=== PATIENT | female | born 1985 ===

== ENCOUNTER 2017-11-25 07:15 | Emergency (ER) | payer OTHER ==
--- NOTE | 2017-11-25 07:50 | ED PDOC ---
Arrival/HPI - General Chief Complaint: Headache Time Seen by Provider: 11/25/17 07:46 Historian: Patient - History of Present Illness Narrative History of Present Illness (Text): 11/25/17 08:00 Pt p/w + 1 week onset of frontal headache, left >> right side; + light-sensitive , + > 10/10 pain over the last 2-3 days; also + intermittent nausea with vomiting x last 2 days, at least 2 vomits daily; pt has no appetite, no fever/ chills/sweats, no sore throat, no chest pain/shortness of breath/palpitations, no abd pain, no numbness/tingling, no urinary/bowel changes, no rashes, no fall/ trauma/sick contact, no travel; pt took OTC aleve with minimum-no relief; pt denied LOC; pt arrived to emergency department for further eval; pt's without other complaints pt with hx of migraines, states usually gets one episode every month and lasts usually 2-3 days at most; pt [place] country but does not know the name PCP: clinic Past medical history: Migraines LMP: 1-2 weeks ago Time/Duration: 1 week Symptom Onset: Gradual Symptom Course: Worsening Quality: Aching, Tightness, Cramping, Throbbing Severity Level: Severe Activities at Onset: Rest Context: Home Past Medical History - Provider Review Nursing Documentation Reviewed: Yes - Travel History Have you recently traveled outside [place] w/in the past 3 mons?: No - Past History Past History: No Previous - Infectious Disease Hx of Infectious Diseases: None - Reproductive Menopause: No Currently : Unknown (LMP: 1-2 weeks ago) Family/Social History - Physician Review Nursing Documentation Reviewed: Yes Family/Social History: No Known Family HX Smoking Status: Never Smoked Hx Alcohol Use: Yes Frequency of alcohol use: Socially Hx Substance Use: No Hx Substance Use Treatment: No Allergies/Home Meds Allergies/Adverse Reactions: Allergies No Known Allergies Allergy (Verified 11/25/17 07:50) Review of Systems - Review of Systems Constitutional: Normal Eyes: Other (light sensitive) ENT: Normal Respiratory: Normal Cardiovascular: Normal Gastrointestinal: Nausea, Vomiting. absent: Abdominal Pain Genitourinary Female: Normal Musculoskeletal: Normal Skin: Normal Neurological: Headache, Dizziness Endocrine: Normal Hemo/Lymphatic: Normal Psychiatric: Normal Physical Exam - Physical Exam Narrative Physical Exam (Text): 11/25/17 0755 General: alert/awake, GCS = 15, oriented x 3, resting in bed, uncomfortable, cooperative, interactive; mild distress due to pain Head: NC/AT EYE: PERRLA, EOMI, sclera anicteric, no nystagmus, light-sensitive; visual field intact b/l; wearing eye glasses Facial: WNL Oral: uvula/tongue are midline, no exudate/lesions, no drooling/stridor, no dysphonia; intact dentitions; moist oral mucosa NECK: intact ROM, no midline tenderness, no nuchal rigidity, no meningeal signs ; no step off Chest: CTA b/l, no w/r/r; no tachypenia, no accessory muscle use noted Cardiac: +S1, +S2, no m/r/r, no tachycardia Abdominal: +BS, soft/nd/nt, well nourished patient; no masses/rebound/guarding/ rigidity; no tony's sign, no mcburney's point tenderness Extremities: intact ROM, strength 5/5 grossly intact in all limbs, neurovasc intact b/l; + ambulatory; reflex +2/2; no pitting edema/swelling b/l; no Antoni' s sign b/l BACK: no step off, no midline tenderness, NO crepitus, no gross deformities noted; Intact ROM SKIN: cap refill < 1 sec, no ulcerations, no petechiae, no rashes; no pallor NEURO: CNII-XII WNL, no facial asymmetries, no slurr speech, oriented x 3 NIH stroke scale ~ 0 Psych: normal insight, normal affect; follows command with ease Vital Signs Reviewed: Yes Vital Signs Temp Pulse Resp BP Pulse Ox 11/25/17 07:56 97.8 F 78 18 116/87 99 Temperature: Afebrile Blood Pressure: Normal Pulse: Regular Respiratory Rate: Normal Appearance: Positive for: Well-Appearing, Non-Toxic, Uncomfortable. No: Ill- Appearing, Unkept Pain Distress: Mild Mental Status: Positive for: Alert and Oriented X 3 - Systems Exam Head: Present: Atraumatic, Normocephalic Medical Decision Making ED Course and Treatment: 11/25/17 07:49 Impression: CALIX i have consider all the differential diagnosis regarding pt's chief medical complaints/clinical findings, including but are not limited to: CALIX; unlikely infectious/unlikely bleed, atrumatic A/P: CALIX - supportive care - observe/reevaluation 11/25/17 10:54 pt is comfortable currently pt is doing well pt is not in any distress pt states her headache is now down to 3-4/10; much improved pt is made aware of her medical results pt is encouraged fluids pt will follow up as directed pt will be discharged home Re-evaluation Time: 10:54 Reassessment Condition: Improved - Lab Interpretations Lab Results: 11/25/17 08:25 11/25/17 08:25 Lab Results 11/25/17 09:15: Urine Color Yellow, Urine Appearance Clear, Urine pH 8.5, Ur Specific [place] 1.015, Urine Protein Trace H, Urine Glucose (UA) 100 H, Urine Ketones Negative, Urine Blood Negative, Urine Nitrate Positive H, Urine Bilirubin Negative, Urine Urobilinogen 2.0 H, Ur Leukocyte Esterase Negative, Urine RBC Negative, Urine WBC Negative, Ur Epithelial Cells 0 - 2, Urine Bacteria Trace 11/25/17 08:25: Sodium 143, Potassium 4.1, Chloride 108 H, Carbon Dioxide 24, Anion Gap 15, BUN 10, Creatinine 0.6 L, Est GFR ( Amer) > 60, Est GFR ( Non-Af Amer) > 60, Random Glucose 89, Calcium 8.5, Total Bilirubin 0.7, AST 21, ALT 31, Alkaline Phosphatase 30 L, Total Protein 7.0, Albumin 4.1, Globulin 2.9 , Albumin/Globulin Ratio 1.4 11/25/17 08:25: WBC 4.5, RBC 4.06, Hgb 12.0, Hct 35.2 L, MCV 86.7, MCH 29.6, MCHC 34.1, RDW 12.4, Plt Count 198, MPV 9.0, Gran % 63.2, Lymph % (Auto) 29.0, [place] % (Auto) 6.0, Eos % (Auto) 1.6, Baso % (Auto) 0.2, Gran # 2.83, Lymph # ( Auto) 1.3, [place] # (Auto) 0.3, Eos # (Auto) 0.1, Baso # (Auto) 0.01, ESR 2 I have reviewed the lab results: Yes Interpretation: Abnormal lab values (+ UA) - Medication Orders Current Medication Orders: Trimethoprim/Sulfamethoxazole (Bactrim Ds Tab) 1 tab PO STAT STA PRN Reason: Protocol Stop: 11/25/17 10:54 Discontinued Medications Magnesium Sulfate/Dextrose (Magnesium Sulfate 1 Gm/100 Ml D5w) 1 gm in 100 mls @ 100 mls/hr IVPB ONCE ONE Stop: 11/25/17 09:03 Last Admin: 11/25/17 08:30 Dose: 100 mls/hr eMAR Start Stop Document 11/25/17 08:30 [facility] (Rec: 11/25/17 08:31 [facility] [id number]) Intravenous Solution Start Date 11/25/17 Start Time 08:30 End Date 11/25/17 End time 09:30 Total Infusion Time 60 Sodium Chloride (Sodium Chloride 0.9%) 1,000 mls @ 999 mls/hr IV .Q1H1M STA Stop: 11/25/17 09:04 Last Admin: 11/25/17 08:29 Dose: 999 mls/hr eMAR Start Stop Document 11/25/17 08:29 [facility] (Rec: 11/25/17 08:30 [facility] [id number]) Intravenous Solution Start Date 11/25/17 Start Time 08:29 End Date 11/25/17 End time 09:29 Total Infusion Time 60 Ketorolac Tromethamine (Toradol) 30 mg IVP STAT STA Stop: 11/25/17 08:05 Last Admin: 11/25/17 08:30 Dose: 30 mg MAR Pain Assessment Document 11/25/17 08:30 [facility] (Rec: 11/25/17 08:30 [facility] [id number]) Pain Reassessment Is this a pain reassessment? No IVP Administration Document 11/25/17 08:30 [employer] (Rec: 11/25/17 08:30 [facility] [id number]) Charges for Administration # of IVP Administrations 1 Metoclopramide HCl (Reglan) 10 mg IVP STAT STA Stop: 11/25/17 08:05 Last Admin: 11/25/17 08:30 Dose: 10 mg IVP Administration Document 11/25/17 08:30 [employer] (Rec: 11/25/17 08:30 [facility] [id number]) Charges for Administration # of IVP Administrations 1 NIHSS Stroke Scale 3 - Date/Time Evaluation Performed Date Performed: 11/25/17 Time Performed: 08:00 When Was NIHSS Performed: Baseline - How Severe is the Stroke Level of Consciousness: 0=Alert LOC to Questions: 0=Both comments correct LOC to commands: 0=Obeys both correctly Best Gaze: 0=Normal Visual: 0=No visual loss Facial: 0=Normal Motor Arm - Left: 0=No drift Motor Arm - Right: 0=No drift Motor Leg - Left: 0=No drift Motor Leg - Right: 0=No drift Limb Ataxia: 0=Absent Sensory: 0=Normal Best Language: 0=No aphasia Dysarthia: 0=Normal articulation Extinction & Inattention (Neglect): 0=Normal, no object Score: 0 Disposition/Present on Arrival - Present on Arrival Any Indicators Present on Arrival: No History of DVT/PE: No History of Uncontrolled Diabetes: No Urinary Catheter: No History of Decub. Ulcer: No History Surgical Site Infection Following: None - Disposition Have Diagnosis and Disposition been Completed?: Yes Diagnosis: Migraine, UTI (urinary tract infection) Disposition: HOME/ ROUTINE Disposition Time: 10:58 Patient Plan: Discharge Condition: STABLE Discharge Instructions (ExitCare): Migraine Headache (DC) Print Language: CANADIAN Additional Instructions: Make sure to see your doctor in 1-2 days DRINK PLENTY OF FLUIDS take your medications as prescribed RETURN TO ED IF worse pain, cant breath, persistent vomiting, high fever >101- 102 for hours, altered behavior, slurr speech, facial changes, focal weakness ( arm/leg or both), unable to urinate, heavy/persistent bleeding, passing out, chest pain, or other medical emergencies Prescriptions: Ibuprofen [Motrin] 600 mg PO QID PRN #30 tab PRN Reason: Pain, Mild (1-3) Metoclopramide [Reglan] 10 mg PO TID PRN #30 tab PRN Reason: Nausea/Vomiting Sulfamethoxazole/Trimethoprim [Bactrim DS 800 mg-160 mg] 1 tab PO BID #13 tab Referrals: Alvarez Berman MD [Staff Provider] - Follow up with primary [email or web address] [Outside] - Follow up with primary [facility] [Outside] - Follow up with primary [facility] [place] - Follow up with primary Forms: [employer] (Sami), WORK NOTE
[2017-11-25 07:59] VITALS: BMI 23.8
[2017-11-25 08:00] VITALS: RESP 18; TEMP 97.8; O2SAT 99
[2017-11-25] MEDS ORDERED: Magnesium Sulfate 1 gm in D5W 1 GM/100 ML BAG IVPB ONE (08:04)
[2017-11-25] MEDS ORDERED: Sodium Chloride 0.9% 1,000 ML IV STA (08:04)
[2017-11-25 08:36] LABS: BASO # 0.01 K/mm3 (0.0-2.0); BASO % 0.2 % (0.0-3.0); EOS # 0.1 (0.0-0.7); EOS % 1.6 % (1.5-5.0); GRAN # 2.83 (1.4-6.5); GRAN % 63.2 % (50.0-68.0); LYMPH # 1.3 (1.2-3.4); MEAN CELL VOLUME 86.7 fl (80.0-105.0); MEAN CORPUSCULAR HEMOGLOBIN 29.6 pg (25.0-35.0); MEAN CORPUSCULAR HGB CONC 34.1 g/dl (31.0-37.0); MONO # 0.3 (0.1-0.6); RBC 4.06 10^6/uL (3.5-6.1); RED CELL DISTRIBUTION WIDTH 12.4 % (11.5-14.5); WHITE BLOOD COUNT 4.5 10^3/ul (4.5-11.0)
[2017-11-25 08:54] LABS: ALB/GLOB RATIO 1.4 (1.1-1.8); ALBUMIN 4.1 g/dL (3.0-4.8); ALT/SGPT 31 U/L (7-56); AST/SGOT 21 U/L (14-36); BLOOD UREA NITROGEN 10 mg/dL (7-21); CALCIUM 8.5 mg/dL (8.4-10.5); GFR AFRICAN-AMERICAN > 60; GFR NON-AFRICAN AMERICAN > 60
[2017-11-25 09:39] LABS: PH,URINE 8.5 (4.7-8.0); URINE BILIRUBIN NEGATIVE (NEGATIVE); URINE BLOOD NEGATIVE (NEGATIVE); URINE GLUCOSE (UA) 100 mg/dL (NEGATIVE); URINE LEUKOCYTE ESTERASE NEGATIVE Leu/uL (NEGATIVE); URINE PROTEIN TRACE mg/dL (<30 mg/dL)
[2017-11-25 09:41] LABS: URINE COLOR YELLOW (YELLOW)
[2017-11-25 09:42] LABS: URINE APPEARANCE CLEAR (CLEAR)
[2017-11-25 10:04] LABS: URINE RBC NEGATIVE /hpf (0-2)
[2017-11-25 10:05] LABS: URINE BACTERIA TRACE (NEG); URINE EPITHELIAL CELLS 0 - 2 /hpf (0-5); URINE WBC NEGATIVE /hpf (0-6)
[2017-11-25] MEDS ORDERED: Tmp-Smz 800 mg-160 mg DS Tab PO STA (10:53)
[2017-11-25 11:29] VITALS: PULSE 72
[2017-11-25 11:31] VITALS: BP 112/66
== END 2017-11-25 11:31 | disposition home or self-care (01) ==
LOC: ED 07:38
DX: G43.909 Migraine, unspecified, not intractable, without status migrainosus (principal); N39.0 Urinary tract infection, site not specified
CPT/HCPCS: 80053; 81001; 85025; 85651; 87086; 96365; 96375; 99285; J1885; J2765; J3475; J7030

== ENCOUNTER 2018-11-04 09:59 | Emergency (ER) | payer MEDICAID, OTHER ==
[2018-11-04 10:16] VITALS: BMI 25.6
[2018-11-04 10:32] VITALS: RESP 18; TEMP 98.8; O2SAT 100
[2018-11-04] MEDS ORDERED: Sodium Chloride 0.9% 1,000 ML IV STA (10:45)
--- NOTE | 2018-11-04 11:08 | ED PDOC ---
Arrival/HPI - General Chief Complaint: Female Genitourinary Time Seen by Provider: 11/04/18 10:00 Historian: Patient - History of Present Illness Narrative History of Present Illness (Text): 11/04/18 11:07 33 year old female, with no significant past medical history, presents to the emergency department complaining of vaginal bleeding and lower abdominal discomfort that began last night. Patient reports her menstrual period was late and took 4 positive test 2 days ago. Patient's last menstrual period was 10/04 and states it is normally regular. Patient denies any fever, chills, chest pain, shortness of breath, nausea, vomiting, diarrhea, urinary symptoms, back pain, neck pain, headache, dizziness, or any other complaints. PMD: Dr. Lilly Flowers Time/Duration: Other (last night) Symptom Onset: Gradual Symptom Course: Unchanged Activities at Onset: Light Context: Home Past Medical History - Provider Review Nursing Documentation Reviewed: Yes Primary Care Provider: Non [facility] Provider, - Past History Past History: No Previous - Infectious Disease Hx of Infectious Diseases: None - Psychiatric Hx Substance Use: No Family/Social History - Physician Review Nursing Documentation Reviewed: Yes Family/Social History: No Known Family HX Smoking Status: Never Smoked Hx Alcohol Use: Yes Hx Substance Use: No Hx Substance Use Treatment: No Allergies/Home Meds Allergies/Adverse Reactions: Allergies No Known Allergies Allergy (Verified 11/04/18 10:32) Review of Systems - Physician Review All systems were reviewed & negative as marked: Yes - Review of Systems Constitutional: absent: Fevers, Other (chills) Respiratory: absent: SOB Cardiovascular: absent: Chest Pain Gastrointestinal: Abdominal Pain. absent: Diarrhea, Nausea, Vomiting Genitourinary Female: Vaginal Bleeding. absent: Frequency, Hematuria Musculoskeletal: absent: Back Pain, Neck Pain Neurological: absent: Headache, Dizziness Physical Exam Vital Signs Reviewed: Yes Vital Signs Temp Pulse Resp BP Pulse Ox 11/04/18 10:16 98.8 F 68 18 115/77 100 Temperature: Afebrile Blood Pressure: Normal Pulse: Regular Respiratory Rate: Normal Appearance: Positive for: Well-Appearing, Non-Toxic, Comfortable Pain Distress: None Mental Status: Positive for: Alert and Oriented X 3 - Systems Exam Head: Present: Atraumatic, Normocephalic Pupils: Present: PERRL Extroacular Muscles: Present: EOMI Conjunctiva: Present: Normal Mouth: Present: Moist Mucous Membranes Neck: Present: Normal Range of Motion Respiratory/Chest: Present: Clear to Auscultation, Good Air Exchange. No: Respiratory Distress, Accessory Muscle Use Cardiovascular: Present: Regular Rate and Rhythm, Normal S1, S2. No: Murmurs Abdomen: No: Tenderness, Distention, Peritoneal Signs Back: Present: Normal Inspection Upper Extremity: Present: Normal Inspection. No: Cyanosis, Edema Lower Extremity: Present: Normal Inspection. No: Edema Neurological: Present: GCS=15, Speech Normal Skin: Present: Warm, Dry, Normal Color. No: Rashes Psychiatric: Present: Alert, Oriented x 3, Normal Insight, Normal Concentration Medical Decision Making ED Course and Treatment: 11/04/18 11:18 Impression: 33 year old female presents complaining of vaginal bleeding and lower abdominal discomfort that began last night. Plan: -- Labs -- IV Fluids -- Urine Culture -- POC Urine Test -- Urinalysis w/ micro -- OB Transvaginal US -- Reassess and disposition Progress Notes: Transvaginal US Dictator : Geri Hayes MD Report Date : 11/04/2018 12:06:10 Impression: No evidence of intrauterine gestational sac. If indeed the patient is based on serum beta HCG values, the sonographic findings represent either: Very early IUP; embryonic demise; ectopic gestation. Follow-up with serial quantitative serum beta HCG measurements and post OBGYN follow-up as clinically indicated, since ectopic gestation cannot be excluded based only on sonographic findings. 1.1 x 0.4 x 1.1 cm cystic structure demonstrates thickened peripheral rim and vascularity favored to reside within the right ovary and represent a corpus luteum. However, given clinical presentation, para ovarian location/ectopic is not excluded. Recommend clinical correlation including quantitative beta HCG. 11/04/18 13:54 On re-evaluation, patient is in no acute distress. I have discussed the results and plan with the patient, who expresses understanding. Patient in agreement with plan to be discharged home. Patient is stable for discharge. Patient was instructed to follow up with physician or return if symptoms worsen or new concerning symptoms arise. - Lab Interpretations I have reviewed the lab results: Yes - RAD Interpretation Radiology Orders: 11/04/18 10:46 OB TRANSVAGINAL [US] Stat Configuration Management Analyst: Radiologist - Medication Orders Current Medication Orders: Sodium Chloride (Sodium Chloride 0.9%) 1,000 mls @ 1,000 mls/hr IV .Q1H STA Stop: 11/04/18 11:44 - Scribe Statement The provider has reviewed the documentation as recorded by the Maximusibendy Mendez Provider Scribe Attestation: All medical record entries made by the Scribe were at my direction and personally dictated by me. I have reviewed the chart and agree that the record accurately reflects my personal performance of the history, physical exam, medical decision making, and the department course for this patient. I have also personally directed, reviewed, and agree with the discharge instructions and disposition. Disposition/Present on Arrival - Present on Arrival Any Indicators Present on Arrival: No History of DVT/PE: No History of Uncontrolled Diabetes: No Urinary Catheter: No History of Decub. Ulcer: No History Surgical Site Infection Following: None - Disposition Have Diagnosis and Disposition been Completed?: Yes Diagnosis: Threatened Disposition: HOME/ ROUTINE Disposition Time: 12:45 Condition: GOOD Discharge Instructions (ExitCare): Bleeding With (DC) Additional Instructions: JONNY DEL TORO, thank you for letting us take care of you today. The emergency medical care you received today was directed at your acute symptoms. If you were prescribed any medication, please fill it and take as directed. It may take several days for your symptoms to resolve. Return to the Emergency Department if your symptoms worsen, do not improve, or if you have any other problems. Please contact your doctor or call one of the physicians/clinics you have been referred to that are listed on the Patient Visit Information form that is included in your discharge packet. Bring any paperwork you were given at discharge with you along with any medications you are taking to your follow up visit. Our treatment cannot replace ongoing medical care by a primary care prov ider outside of the emergency department. Thank you for allowing the [facility] team to be part of your care today. Follow up with your OB doctor or our OB clinic this week for re-evaluation and further management. Return if you have any concerns. Prescriptions: Cephalexin [cephalexin] 500 mg PO TID #15 cap Vit No.126/Iron/Folic [Classic Tablet] 1 each PO DAILY #30 tablet Referrals: [facility] [Outside] - [facility] [Outside] - Follow up with primary Kristie Carr MD [Primary Care Provider] - Follow up with primary Forms: [employer] (Malay), WORK NOTE
[2018-11-04 11:13] LABS: BASO # 0.02 K/mm3 (0.0-2.0); BASO % 0.3 % (0.0-3.0); EOS # 0.2 (0.0-0.7); EOS % 2.9 % (1.5-5.0); HEMOGLOBIN 12.8 g/dL (12.0-16.0); LYMPH # 2.4 (1.2-3.4); LYMPH % 37.2 % (22.0-35.0); MEAN CELL VOLUME 87.1 fl (80.0-105.0); MEAN CORPUSCULAR HGB CONC 33.3 g/dl (31.0-37.0); MONO # 0.4 (0.1-0.6); MONO % 6.8 % (1.0-6.0); RBC 4.41 10^6/uL (3.5-6.1); WHITE BLOOD COUNT 6.5 10^3/uL (4.5-11.0)
[2018-11-04 11:14] LABS: URINE APPEARANCE CLEAR (CLEAR); URINE BILIRUBIN NEGATIVE (NEGATIVE); URINE BLOOD LARGE (NEGATIVE); URINE COLOR YELLOW (YELLOW); URINE GLUCOSE (UA) NEGATIVE (NEGATIVE); URINE LEUKOCYTE ESTERASE SMALL Leu/uL (NEGATIVE); URINE PROTEIN NEGATIVE mg/dL (<30 mg/dL); URINE UROBILINOGEN 0.2 E.U./dL (<1 E.U./dL)
[2018-11-04 11:22] LABS: ALB/GLOB RATIO 1.4 (1.1-1.8); ALBUMIN 4.9 g/dL (3.0-4.8); ALT/SGPT 34 U/L (7-56); AST/SGOT 25 U/L (14-36); BLOOD UREA NITROGEN 9 mg/dL (7-21); CALCIUM 9.9 mg/dL (8.4-10.5); GFR NON-AFRICAN AMERICAN > 60; LIPASE 80 U/L (23-300); URINE BACTERIA FEW /hpf; URINE RBC 20 - 25 /hpf (0-2)
--- NOTE | 2018-11-04 12:09 | US ---
Date of service: 11/04/2018 Indication: vaginal bleeding Comparison: None available Technique: Transvaginal pelvic ultrasound. Findings: Uterus measures approximately 7.6 x 3.6 x 3.9 cm. Anteverted. Cervix length measures approximately 3.4 cm. Endometrium measures approximately 1 cm in diameter. No evidence of intrauterine gestational sac. The right ovary measures 2.5 x 1.1 x 2.4 cm. 1.1 x 0.4 x 1.1 cm cystic structure with thick peripheral rim and vascularity favored to reside within the right ovary, however this is not definitively demonstrated on submitted images. The left ovary measures 2.0 x 1.4 x 2.0 cm. Blood flow was demonstrated to both ovaries. Impression: No evidence of intrauterine gestational sac. If indeed the patient is based on serum beta HCG values, the sonographic findings represent either: Very early IUP; embryonic demise; ectopic gestation. Follow-up with serial quantitative serum beta HCG measurements and post OBGYN follow-up as clinically indicated, since ectopic gestation cannot be excluded based only on sonographic findings. 1.1 x 0.4 x 1.1 cm cystic structure demonstrates thickened peripheral rim and vascularity favored to reside within the right ovary and represent a corpus luteum. However, given clinical presentation, para ovarian location/ectopic is not excluded. Recommend clinical correlation including quantitative beta HCG.
[2018-11-04 13:39] VITALS: BP 109/74; PULSE 69
== END 2018-11-04 14:06 | disposition home or self-care (01) ==
LOC: ED 09:59
DX: O20.0 Threatened abortion (principal)
CPT/HCPCS: 76817; 80053; 81001; 81025; 83690; 83735; 84702; 85025; 87086; 99283; J7030

== ENCOUNTER 2018-11-17 14:22 | Emergency (ER) | payer MEDICAID, OTHER ==
[2018-11-17 14:28] VITALS: BP 133/80; PULSE 78; RESP 18; TEMP 98.3; O2SAT 97; BMI 24.6
--- NOTE | 2018-11-17 14:52 | ED PDOC ---
Arrival/HPI - General Chief Complaint: Female Genitourinary Time Seen by Provider: 11/17/18 14:24 Historian: Patient - History of Present Illness Narrative History of Present Illness (Text): 11/17/18 14:24 Miriam Cruz is a 33 year old female, with no significant past medical history, who presents to the emergency department complaining of vaginal bleed since 2 weeks. Per visit on 11/04/18, patient appreciated 4 positive tests at home and US recommended serial quantitative serum beta HCG measurements and post OBGYN follow-up; beta HCG read 94 at that time. Patient informs of beta HCG level of 44 from most recent OBGYN visit. Patient also notes secondary complaint of right knee pain since 2 months. Patient states knee pain has worsened and is now painful to the touch and pain is also worsened by flexion of right knee. Patient denies fevers, chills, vision changes, headache, dizziness, chest pain, shortness of breath, abdominal pain, nausea, vomiting, diarrhea, dysuria, hematuria, vaginal discharge, back pain, neck pain, rash, diaphoresis, or any other complaints. Denies trauma. 11/17/18 17:12 Time/Duration: < week (2 days) Symptom Course: Worsening (worsening right knee pain) Activities at Onset: Light Context: Home Past Medical History - Provider Review Nursing Documentation Reviewed: Yes - Past History Past History: No Previous - Infectious Disease Hx of Infectious Diseases: None - Psychiatric Hx Substance Use: No Family/Social History - Physician Review Nursing Documentation Reviewed: Yes Family/Social History: Unknown Family HX Smoking Status: Never Smoked Hx Alcohol Use: Yes Hx Substance Use: No Hx Substance Use Treatment: No Allergies/Home Meds Allergies/Adverse Reactions: Allergies No Known Allergies Allergy (Verified 11/17/18 14:28) Review of Systems - Review of Systems Constitutional: absent: Fevers, Other Respiratory: absent: SOB, Cough Cardiovascular: absent: Chest Pain Gastrointestinal: absent: Abdominal Pain, Diarrhea, Nausea, Vomiting Genitourinary Female: Vaginal Bleeding. absent: Dysuria, Hematuria, Vaginal Discharge Musculoskeletal: Arthralgias (right knee pain worsened with flexion). absent: Back Pain, Neck Pain Skin: absent: Rash Neurological: absent: Headache, Dizziness Endocrine: absent: Diaphoresis Physical Exam Vital Signs Reviewed: Yes Vital Signs Temp Pulse Resp BP Pulse Ox 11/17/18 14:27 98.3 F 78 18 133/80 97 Temperature: Afebrile Blood Pressure: Normal Pulse: Regular Respiratory Rate: Normal Appearance: Positive for: Well-Appearing, Non-Toxic, Comfortable Pain Distress: None Mental Status: Positive for: Alert and Oriented X 3 - Systems Exam Head: Present: Atraumatic, Normocephalic Pupils: Present: PERRL Extroacular Muscles: Present: EOMI Conjunctiva: Present: Normal Mouth: Present: Moist Mucous Membranes Neck: Present: Normal Range of Motion Respiratory/Chest: Present: Clear to Auscultation, Good Air Exchange. No: Respiratory Distress, Accessory Muscle Use, Wheezes, Rales, Rhonchi Cardiovascular: Present: Regular Rate and Rhythm, Normal S1, S2. No: Murmurs, Rub, Gallop Abdomen: Present: Normal Bowel Sounds. No: Tenderness, Distention, Peritoneal Signs, Rebound, Guarding Back: Present: Normal Inspection Upper Extremity: Present: Normal Inspection. No: Cyanosis, Edema Lower Extremity: Present: Normal ROM, Tenderness (pinpoint tenderness to right knee), Neurovascularly Intact. No: Edema Neurological: Present: GCS=15, CN II-XII Intact, Speech Normal Skin: Present: Warm, Dry, Normal Color. No: Rashes Psychiatric: Present: Alert, Oriented x 3, Normal Insight, Normal Concentration Medical Decision Making ED Course and Treatment: 11/17/18 14:24 Impression: Patient is a 33 year old female, with no significant past medical history, who presents to the emergency department complaining of vaginal bleed. Decreasing bhcg since last ED visit with negative ultrasound. Plan: -- Beta HCG Quantitative -- Right Knee X-Ray 2V -- Reassess and disposition Prior Visits: Notes and results from previous visits were reviewed. Progress Notes: 11/17/18 14:24 Xray knee negative. Counseled importance of follow-up with ortho for MRI of right knee. 11/17/18 16:52 Repeat bhcg from 44 to 2.83. Instructed to follow-up with transitional nurse. Instructed to follow-up with ortho for persistent pain - RAD Interpretation Radiology Orders: 11/17/18 14:33 KNEE RIGHT 2 VIEWS (AP & LAT) [RAD] Stat - Scribe Statement The provider has reviewed the documentation as recorded by the Scribe Duncan Munafo All medical record entries made by the Scribe were at my direction and personally dictated by me. I have reviewed the chart and agree that the record accurately reflects my personal performance of the history, physical exam, medical decision making, and the department course for this patient. I have also personally directed, reviewed, and agree with the discharge instructions and disposition. Disposition/Present on Arrival - Present on Arrival Any Indicators Present on Arrival: No History of DVT/PE: No History of Uncontrolled Diabetes: No Urinary Catheter: No History of Decub. Ulcer: No History Surgical Site Infection Following: None - Disposition Have Diagnosis and Disposition been Completed?: Yes Diagnosis: Knee pain, Vaginal bleeding Disposition: HOME/ ROUTINE Disposition Time: 16:53 Patient Plan: Discharge Patient Problems: Current Active Problems Problem Status Onset Complete Acute Knee pain Acute Vaginal bleeding Acute Condition: GOOD Discharge Instructions (ExitCare): Chronic Knee Pain Additional Instructions: Follow-up with financial sales manager within 2 days for follow-up. Follow-up with orthopedics for persistent knee pain. Motrin for pain. Referrals: PCP,NO [Primary Care Provider] - Follow up with primary Pooja Hanks MD [Staff Provider] - Follow up with primary Forms: [employer] (Montenegrin)
--- NOTE | 2018-11-17 17:06 | RAD ---
Date of service: 11/17/2018 PROCEDURE: Right Knee Radiographs. HISTORY: R knee pain COMPARISON: None. TECHNIQUE: 2 views obtained. FINDINGS: BONES: No acute fracture JOINTS: Unremarkable. JOINT EFFUSION: None. OTHER FINDINGS: None. IMPRESSION: No demonstrated fracture or dislocation.
== END 2018-11-17 17:14 | disposition home or self-care (01) ==
LOC: ED 14:22
DX: N93.9 Abnormal uterine and vaginal bleeding, unspecified (principal); M25.561 Pain in right knee